=== PATIENT | female | born 1995 | race American Indian/Alaskan Native ===

== ENCOUNTER 2018-04-16 19:59 | Emergency (ER) | payer MEDICAID ==
[2018-04-16] MEDS ORDERED: ZOFRAN ONE (20:07)
[2018-04-16] MEDS ORDERED: TORADOL ONE (20:07)
[2018-04-16 20:21] VITALS: BP 142/88
[2018-04-16] MEDS ORDERED: ZOFRAN IM ONE (20:23)
[2018-04-16] MEDS ORDERED: TORADOL IM ONE (20:24)
[2018-04-16 20:49] LABS: Basophils % (Auto) 0.4 % (0.0-1.8); Eosinophils % (Auto) 0.5 % (0.0-4.3); Hematocrit 35.6 % (30.3-42.9); Hemoglobin 11.8 gm/dl (10.1-14.3); Lymphocytes # (Auto) 1.2 K/mm3 (1.2-5.4); Mean Corpuscular HGB Conc 33 % (30-34); Mean Corpuscular Hemoglobin 28 pg (28-32); Mean Corpuscular Volume 84 fl (79-97); Monocytes # (Auto) 0.4 K/mm3 (0.0-0.8); Monocytes % (Auto) 6.8 % (0.0-7.3); Platelet Count 148 K/mm3 (140-440); Red Blood Count 4.25 M/mm3 (3.65-5.03); Red Cell Distribution Width 13.2 % (13.2-15.2)
[2018-04-16 21:21] LABS: Alanine Aminotransferase 12 units/L (7-56); BUN/Creatinine Ratio 10; Blood Urea Nitrogen 7 mg/dL (7-17); Calcium 8.9 mg/dL (8.4-10.2); Hemolysis Index 3; Lipase 36 units/L (13-60)
--- NOTE | 2018-04-16 21:37 | Emergency Department Report ---
HPI - General Chief Complaint: Abdominal Pain Time Seen by Provider: 04/16/18 21:27 - HPI HPI: 22-year-old -[place] female presents to the emergency department with a complaint of a one to 2 day history of some left-sided flank pain. It started yesterday but worsened today. It is associated with some nausea and vomiting but that has improved since she got some Zofran through triage. She otherwise has not taken anything for her symptoms prior to presentation. She denies any fever, vaginal bleeding or discharge, dysuria. She does not have any past medical history. Her primary care physician is Dr. Catarino Ramírez. Recent travel or sick contacts at home. No obvious aggravating or alleviating factors. Currently her pain is 5 out of 10 in intensity. ED Past Medical Hx - Past Medical History Previous Medical History?: No - Surgical History Past Surgical History?: No - Social History Smoking Status: Never Smoker Substance Use Type: None - Medications Home Medications: Home Medications Medication Instructions Recorded Confirmed Last Taken Type Nitrofurantoin Monohyd/M-Cryst 100 mg PO BID #14 capsule 04/17/18 Unknown Rx [Macrobid 100 mg Capsule] ED Review of Systems ROS: Stated complaint: BACK PAIN/NAUSEA Other details as noted in HPI Comment: All other systems reviewed and negative Constitutional: denies: chills, fever Eyes: denies: eye pain, eye discharge, vision change ENT: denies: ear pain, throat pain Respiratory: denies: cough, shortness of breath, wheezing Cardiovascular: denies: chest pain, palpitations Gastrointestinal: abdominal pain (left flank), nausea, vomiting Genitourinary: denies: urgency, dysuria, discharge Musculoskeletal: denies: back pain, joint swelling, arthralgia Skin: denies: rash, lesions Neurological: denies: headache, weakness, paresthesias Physical Exam - Physical Exam Vital Signs: Vital Signs 04/16/18 20:17 Temperature 98.5 F Pulse Rate 95 H Respiratory 18 Rate Blood Pressure 142/88 O2 Sat by Pulse 99 Oximetry Physical Exam: GENERAL: The patient is well-developed well-nourished. HENT: Normocephalic. Atraumatic. Patient has moist mucous membranes. EYES: Extraocular motions are intact. Pupils equal reactive to light bilaterally. NECK: Supple. Trachea is midline. CHEST/LUNGS: Clear to auscultation. There is no respiratory distress noted. HEART/CARDIOVASCULAR: Regular. There is no tachycardia. There is no murmur. ABDOMEN: Abdomen is soft, nontender. Unable to reproduce abdominal or flank pain to palpation. No guarding. Patient has normal bowel sounds. There is no abdominal distention. SKIN: Skin is warm and dry. NEURO: The patient is awake, alert, and oriented. The patient is cooperative. The patient has no focal neurologic deficits. The patient has normal speech. MUSCULOSKELETAL: There is no tenderness or deformity. There is no limitation range of motion. There is no evidence of acute injury. BACK: No CVA tenderness to palpation. ED Course Vital Signs 04/16/18 20:17 Temperature 98.5 F Pulse Rate 95 H Respiratory 18 Rate Blood Pressure 142/88 O2 Sat by Pulse 99 Oximetry ED Medical Decision Making - Lab Data Result diagrams: 04/16/18 20:29 04/16/18 20:29 - Radiology Data Radiology results: report reviewed Transvaginal ultrasound shows an IUD present. Hypoechoic right ovarian lesion, consider complex cyst. Increased vascularity about the left adnexa consider pelvic congestion. Hyperechoic focus about the left adnexa nonspecific and may represent small calcification. Moderate free pelvic fluid. Consider recently ruptured ovarian cyst. Left renal ultrasound shows that the kidney is unremarkable. No hydronephrosis , mass or calculus. There is some mild free fluids. To the bladder. Bladder wall thickened at 8 mm. - Medical Decision Making Patient presents with some left flank and/or pelvic pain since yesterday as well as some nausea and vomiting. The nausea has resolved at this point. She had some improvement with the Toradol for her flank pain. The labs are mostly unremarkable except for the urinalysis which shows a mild urinary tract infection and some hematuria. A left renal ultrasound was done that does not show any abnormalities including no calculus or hydronephrosis. Transvaginal ultrasound was done that shows a hypoechoic right ovarian lesion to consider a complex cyst. There is some increased vascularity Out the left adnexa. There is a hyperechoic focus about the left adnexa that may represent a small calcification. There is moderately free pelvic fluid. This could all be showing a ruptured ovarian cyst. With the hematuria and the flank and/or pelvic pain, it is possible that the patient passed a kidney stone. It is also possible that her discomfort is secondary to ruptured ovarian cyst. She does not have any signs of torsion. Vital signs stable throughout her ED course included being afebrile. She appears safe for discharge home at this time. She has been encouraged to follow up with her primary care physician and has been given referrals for [facility] services. She was encouraged to return to the emergency Department with any worsening of her symptoms or any acute distress. - Differential Diagnosis nephrolithiasis, , ovarian torsion, ovarian cyst Critical Care Time: No Critical care attestation.: If time is entered above; I have spent that time in minutes in the direct care of this critically ill patient, excluding procedure time. ED Disposition Clinical Impression: Flank pain, Pelvic pain UTI (urinary tract infection) Qualifiers: Urinary tract infection type: acute cystitis Hematuria presence: with hematuria Qualified Code(s): N30.01 - Acute cystitis with hematuria Disposition: TO HOME OR SELFCARE Is pt being admited?: No Condition: Stable Instructions: Urinary Tract Infection in Women (ED), Flank Pain (ED) Additional Instructions: Please follow up with your primary care physician in the next few days. Take the antibiotics as prescribed. Return to the emergency Department with any worsening of her symptoms or any acute distress. Prescriptions: Nitrofurantoin Monohyd/M-Cryst [Macrobid 100 mg Capsule] 100 mg PO BID #14 capsule Referrals: CATARINO RAMÍREZ MD [Primary Care Provider] - JANAY Forms: Accompanied Note, Work/School Release Form(ED) Time of Disposition: 01:22
[2018-04-16 21:56] LABS: Bilirubin,Urine NEG (Negative); Blood,Urine LG (Negative); Color,Urine Yellow (Yellow); Mucus,Urine 2+ /HPF; Urobilinogen,Urine < 2.0 mg/dL (<2.0)
[2018-04-16 21:58] LABS: RBC,Urine > 182.0 /HPF (0.0-6.0)
[2018-04-16] MEDS ORDERED: MACROBID PO ONE (23:20)
--- NOTE | 2018-04-17 03:06 | Ultrasound Report ---
FINAL REPORT PROCEDURE: US RENAL LT TECHNIQUE: Real-time sonography in multiple planes of the kidneys, ureters and urinary bladder was performed with image documentation. CPT 89341 HISTORY: Left flank pain. COMPARISON: No prior studies are available for comparison. FINDINGS: Right kidney not imaged/seen. Left kidney measures 11.6 x 5.2 x 5 cm. Cortical thickness 1.4 cm. No hydronephrosis, mass, or calculus. Free fluid superior to the bladder. Bladder wall thickened at 8 mm. IMPRESSION: Right kidney not imaged/seen. Left kidney unremarkable. Bladder wall thickened, consider correlation clinically if there is concern for cystitis. Free fluid superior to the bladder.
--- NOTE | 2018-04-17 03:06 | Ultrasound Report ---
FINAL REPORT PROCEDURE: US TRANSVAGINAL TECHNIQUE: Real-time transabdominal sonography in multiple planes of the pelvis was performed. The pelvic structures, especially the ovaries were not optimally visualized. Transvaginal sonography was then performed to better evaluate the structures and/or abnormalities described below with image documentation. Limited Doppler evaluation of the ovaries/adnexa. CPT 42837 [place] 82589 HISTORY: Pelvic pain. COMPARISON: No prior studies are available for comparison. FINDINGS: UTERUS Size: 9.1 x 5.2 x 6.1. Cm. Endometrial thickness: 3.7 mm. IUD. Orientation: anteverted. Cervix: Normal. Fibroids/masses: None. RIGHT Ovary: 3.9 x 2.5 x 3.1 cm. Appearance: Normal flow. 2.3 cm hypoechoic lesion. LEFT Ovary: 3 x 1.2 x 2 cm. Appearance: Normal flow. There appears to be increased vascularity about the left adnexa. 6.2 x 4.2 x 8.4 mm hyperechoic focus about the left adnexa. Pelvic fluid: Moderate free pelvic fluid. Other: None. IMPRESSION: IUD. Hypoechoic right ovarian lesion, consider complex cyst. Consider correlation with beta HCG. Increased vascularity about the left adnexa, consider pelvic congestion. Hyperechoic focus about the left adnexa, nonspecific may represent small calcification. Moderate free pelvic fluid. Consider correlation clinically if there is concern for recently ruptured ovarian cysts. PROCEDURE: TECHNIQUE: HISTORY: COMPARISON: FINDINGS: IMPRESSION:
--- NOTE | 2018-04-17 03:07 | Ultrasound Report ---
FINAL REPORT PROCEDURE: US TRANSVAGINAL TECHNIQUE: Real-time transabdominal sonography in multiple planes of the pelvis was performed. The pelvic structures, especially the ovaries were not optimally visualized. Transvaginal sonography was then performed to better evaluate the structures and/or abnormalities described below with image documentation. Limited Doppler evaluation of the ovaries/adnexa. CPT 44904 and 76969 HISTORY: Pelvic pain. COMPARISON: No prior studies are available for comparison. FINDINGS: UTERUS Size: 9.1 x 5.2 x 6.1. Cm. Endometrial thickness: 3.7 mm. IUD. Orientation: anteverted. Cervix: Normal. Fibroids/masses: None. RIGHT Ovary: 3.9 x 2.5 x 3.1 cm. Appearance: Normal flow. 2.3 cm hypoechoic lesion. LEFT Ovary: 3 x 1.2 x 2 cm. Appearance: Normal flow. There appears to be increased vascularity about the left adnexa. 6.2 x 4.2 x 8.4 mm hyperechoic focus about the left adnexa. Pelvic fluid: Moderate free pelvic fluid. Other: None. IMPRESSION: IUD. Hypoechoic right ovarian lesion, consider complex cyst. Consider correlation with beta HCG. Increased vascularity about the left adnexa, consider pelvic congestion. Hyperechoic focus about the left adnexa, nonspecific may represent small calcification. Moderate free pelvic fluid. Consider correlation clinically if there is concern for recently ruptured ovarian cysts.
== END 2018-04-17 01:32 | disposition home or self-care (01) ==
LOC: ED 19:59
DX: N30.01 Acute cystitis with hematuria (principal); R10.2 Pelvic and perineal pain
CPT/HCPCS: 36415; 76775; 76830; 76856; 80053; 81001; 83690; 84703; 85025; 96372; 99284; J1885; J2405

== ENCOUNTER 2018-04-21 12:49 | Emergency (ER) | payer MEDICAID ==
[2018-04-21 13:07] VITALS: BP 132/71
== END 2018-04-21 14:45 | disposition left against medical advice (07) ==
LOC: ED 12:49
DX: R10.9 Unspecified abdominal pain (principal); Z53.21 Procedure and treatment not carried out due to patient leaving prior to being seen by health care provider

== ENCOUNTER 2018-05-07 06:17 | Emergency (ER) | payer MEDICAID ==
[2018-05-07 07:50] LABS: Basophils % (Auto) 0.5 % (0.0-1.8); Eosinophils # (Auto) 0.1 K/mm3 (0.0-0.4); Eosinophils % (Auto) 1.8 % (0.0-4.3); Hemoglobin 12.3 gm/dl (10.1-14.3); Lymphocytes # (Auto) 1.7 K/mm3 (1.2-5.4); Lymphocytes % (Auto) 38.6 % (13.4-35.0); Mean Corpuscular HGB Conc 33 % (30-34); Mean Corpuscular Hemoglobin 28 pg (28-32); Mean Corpuscular Volume 84 fl (79-97); Monocytes # (Auto) 0.4 K/mm3 (0.0-0.8); Monocytes % (Auto) 9.7 % (0.0-7.3); Platelet Count 142 K/mm3 (140-440); Red Blood Count 4.41 M/mm3 (3.65-5.03); Red Cell Distribution Width 13.2 % (13.2-15.2)
[2018-05-07 08:12] LABS: Alanine Aminotransferase 10 units/L (7-56); Albumin 4.1 g/dL (3.9-5); BUN/Creatinine Ratio 25; Blood Urea Nitrogen 15 mg/dL (7-17); Calcium 9.2 mg/dL (8.4-10.2); Hemolysis Index 2
[2018-05-07] MEDS ORDERED: TORADOL IM ONE (08:13)
[2018-05-07 08:17] LABS: Bacteria,Urine 2+ /HPF (Negative); Bilirubin,Urine NEG (Negative); Blood,Urine MOD (Negative); Color,Urine Yellow (Yellow); Mucus,Urine 1+ /HPF; Urobilinogen,Urine < 2.0 mg/dL (<2.0)
[2018-05-07 08:18] LABS: HCG Qualitative,Urine Negative (Negative)
--- NOTE | 2018-05-07 10:21 | Ultrasound Report ---
Renal ultrasound: Flank and left lower quadrant pain. The right renal length is 11.4 cm. There is no obvious renal mass or calculus and no hydronephrosis. The renal contour is grossly normal. The left renal length is 11.6 cm. In the superior pole there is a small circumscribed echodensity measuring 5 mm. In the mid kidney a similar density is noted measuring 8 mm. There is no hydronephrosis and no renal masses appreciated. Imaging of the urinary bladder demonstrates partial decompression but no other findings. Impressions: Questionable nonobstructing left renal calculi.
[2018-05-07 10:24] VITALS: BP 121/76
--- NOTE | 2018-05-07 10:49 | Ultrasound Report ---
Pelvic ultrasound: Pelvic pain. Endovaginal and transabdominal imaging demonstrates a retroverted uterus measuring roughly 5.1 x 7 x 8.9 cm. An IUD is present within the endometrium. Endometrial thickness is 8.5 mm. The myometrium is somewhat heterogeneous but there is no definable mass. The right ovary measures a maximum of 3.6 cm. It contains a 1.1 cm cyst. The left ovary has a maximum dimension of 3.6 cm and contains 3 cysts measuring 8 mm, 8 mm, and 14 mm respectively. A small amount of echolucent fluid is noted in the cul-de-sac and around the right adnexa. Impression: Bilateral ovarian follicles. Retroverted uterus.
--- NOTE | 2018-05-07 11:09 | Emergency Department Report ---
ED General Adult HPI - General Chief complaint: Abdominal Pain Stated complaint: FLANK PAIN Time Seen by Provider: 05/07/18 08:01 Source: patient Mode of arrival: Stretcher Limitations: No Limitations - History of Present Illness Initial comments: This is a 22-year-old female that presents to the emergency department for the third time in 1 month with a complaint of left flank pain. The pain was radiating to the left lower quadrant on the last 2 visits. The last visit it was associated with fluid and an ovarian cyst but no kidney stone. On this visit. No free fluid but there are tiny flecks of calcium seen in both kidneys with no hydronephrosis. Patient in addition went to her family physician who told her she had a kidney stone on the left. Patient states that occasionally she has nausea. She's had no recent vomiting. No fever or chills. -: Gradual Location: back, abdomen Severity scale (0 -10): 5 Quality: aching Consistency: intermittent Improves with: none Worsens with: none Associated Symptoms: denies other symptoms, nausea/vomiting Treatments Prior to Arrival: none - Related Data Previous Rx's Medication Instructions Recorded Last Taken Type Nitrofurantoin Monohyd/M-Cryst 100 mg PO BID #14 capsule 04/17/18 Unknown Rx [Macrobid 100 mg Capsule] Sulfamethoxazole/Trimethoprim 1 each PO BID #14 tablet 05/07/18 Unknown Rx [Bactrim DS TAB] traMADol [Ultram] 50 mg PO Q6HR PRN #14 tablet 05/07/18 Unknown Rx Allergies Allergy/AdvReac Type Severity Reaction Status Date / Time Penicillins Allergy Hives Verified 05/07/18 06:43 ED Review of Systems ROS: Stated complaint: FLANK PAIN Other details as noted in HPI Constitutional: denies: chills, fever Eyes: denies: eye pain, eye discharge, vision change ENT: denies: ear pain, throat pain Respiratory: denies: cough, shortness of breath, wheezing Cardiovascular: denies: chest pain, palpitations Endocrine: no symptoms reported Gastrointestinal: abdominal pain, nausea. denies: diarrhea Genitourinary: denies: urgency, dysuria, discharge Musculoskeletal: denies: back pain, joint swelling, arthralgia Skin: denies: rash, lesions Neurological: denies: headache, weakness, paresthesias Psychiatric: denies: anxiety, depression Hematological/Lymphatic: denies: easy bleeding, easy bruising ED Past Medical Hx - Past Medical History Previous Medical History?: No - Surgical History Past Surgical History?: No - Social History Smoking Status: Never Smoker - Medications Home Medications: Home Medications Medication Instructions Recorded Confirmed Last Taken Type Nitrofurantoin Monohyd/M-Cryst 100 mg PO BID #14 capsule 04/17/18 Unknown Rx [Macrobid 100 mg Capsule] Sulfamethoxazole/Trimethoprim 1 each PO BID #14 tablet 05/07/18 Unknown Rx [Bactrim DS TAB] traMADol [Ultram] 50 mg PO Q6HR PRN #14 tablet 05/07/18 Unknown Rx ED Physical Exam - General Limitations: No Limitations General appearance: alert, in no apparent distress - Head Head exam: Present: atraumatic, normocephalic - Eye Eye exam: Present: normal appearance, PERRL, EOMI. Absent: scleral icterus - ENT ENT exam: Present: mucous membranes moist - Neck Neck exam: Present: normal inspection - Respiratory Respiratory exam: Present: normal lung sounds bilaterally. Absent: respiratory distress - Cardiovascular Cardiovascular Exam: Present: regular rate, normal rhythm. Absent: systolic murmur, diastolic murmur, rubs, gallop - GI/Abdominal GI/Abdominal exam: Present: soft, normal bowel sounds. Absent: distended, tenderness, guarding, rebound, rigid - Extremities Exam Extremities exam: Present: normal inspection - Back Exam Back exam: Present: normal inspection. Absent: CVA tenderness (R), CVA tenderness (L), muscle spasm, paraspinal tenderness, vertebral tenderness - Neurological Exam Neurological exam: Present: alert, oriented X3, CN II-XII intact. Absent: motor sensory deficit - Psychiatric Psychiatric exam: Present: normal affect, normal mood - Skin Skin exam: Present: warm, dry, intact, normal color. Absent: rash ED Course Vital Signs 05/07/18 05/07/18 05/07/18 06:14 06:43 08:01 Temperature 98.6 F 98.6 F Pulse Rate 86 86 Respiratory 18 18 12 Rate Blood Pressure 113/75 113/75 Blood Pressure [Left] O2 Sat by Pulse 100 100 100 Oximetry 05/07/18 05/07/18 08:04 10:23 Temperature 98.9 F 98.5 F Pulse Rate 74 73 Respiratory 12 14 Rate Blood Pressure Blood Pressure 124/84 121/76 [Left] O2 Sat by Pulse 100 100 Oximetry - Reevaluation(s) Reevaluation #1: Patient without significant pain here. She is appropriate for outpatient follow -up. 05/07/18 11:12 ED Medical Decision Making - Lab Data Result diagrams: 05/07/18 06:58 05/07/18 06:58 Laboratory Results - last 24 hr 05/07/18 05/07/18 05/07/18 06:58 06:58 07:54 WBC 4.3 L RBC 4.41 Hgb 12.3 Hct 37.0 MCV 84 MCH 28 MCHC 33 RDW 13.2 Plt Count 142 Lymph % (Auto) 38.6 H [place] % (Auto) 9.7 H Eos % (Auto) 1.8 Baso % (Auto) 0.5 Lymph # 1.7 [place] # 0.4 Eos # 0.1 Baso # 0.0 Seg Neutrophils % 49.4 Seg Neutrophils # 2.1 Sodium 140 Potassium 3.6 Chloride 100.1 Carbon Dioxide 30 Anion Gap 14 BUN 15 Creatinine 0.6 L Estimated GFR > 60 BUN/Creatinine Ratio 25 Glucose 94 Calcium 9.2 Total Bilirubin 0.60 AST 15 ALT 10 Alkaline Phosphatase 57 Total Protein 6.9 Albumin 4.1 Albumin/Globulin Ratio 1.5 Urine Color Yellow Urine Turbidity Clear Urine pH 5.0 Ur Specific [place] 1.021 Urine Protein 30 mg/dl Urine Glucose (UA) Neg Urine Ketones Neg Urine Blood Mod Urine Nitrite Neg Urine Bilirubin Neg Urine Urobilinogen < 2.0 Ur Leukocyte Esterase Tr Urine WBC (Auto) 14.0 H Urine RBC (Auto) 83.0 U Epithel Cells (Auto) 6.0 Urine Bacteria (Auto) 2+ Urine Mucus 1+ Urine HCG, Qual Negative - Radiology Data Radiology results: report reviewed Critical care attestation.: If time is entered above; I have spent that time in minutes in the direct care of this critically ill patient, excluding procedure time. ED Disposition Clinical Impression: Flank pain UTI (urinary tract infection) Qualifiers: Urinary tract infection type: site unspecified Hematuria presence: with hematuria Qualified Code(s): N39.0 - Urinary tract infection, site not specified ; R31.9 - Hematuria, unspecified Disposition: DC-01 TO HOME OR SELFCARE Is pt being admited?: No Does the pt Need Aspirin: No Condition: Stable Instructions: Abdominal Pain (ED), Flank Pain (ED) Additional Instructions: Follow-up with your primary care physician. I'm also giving him the name of a dietetic aide and a urologist that you can follow up with. There is no additional emergency treatment that is necessary today. Return any acute change or problems. There is a possible urine infection. Follow-up on your urine culture results in 2 days to determine if the antibiotic I prescribed is appropriate to continue. Prescriptions: Sulfamethoxazole/Trimethoprim [Bactrim DS TAB] 1 each PO BID #14 tablet traMADol [Ultram] 50 mg PO Q6HR PRN #14 tablet PRN Reason: Pain Referrals: PRIMARY CAREMD [Primary Care Provider] - 3-5 Days HANY MURRAY MD [Staff Physician] - 3-5 Days [facility] [Provider Group] - 3-5 Days Time of Disposition: 11:21
== END 2018-05-07 11:41 | disposition home or self-care (01) ==
LOC: ED 06:17
DX: N39.0 Urinary tract infection, site not specified (principal); Z88.0 Allergy status to penicillin
CPT/HCPCS: 36415; 76770; 76830; 76856; 80053; 81001; 81025; 85025; 87086; 96372; 99284; J1885

== ENCOUNTER 2018-12-31 21:24 | Emergency (ER) | payer MEDICAID ==
[2018-12-31 22:36] VITALS: BP 125/88
[2018-12-31] MEDS ORDERED: NACL 0.9% 1000 ML 1,000 ML IV ONE (22:36)
[2018-12-31 22:57] LABS: Basophils % (Auto) 0.2 % (0.0-1.8); Eosinophils % (Auto) 0.4 % (0.0-4.3); Hematocrit 36.4 % (30.3-42.9); Hemoglobin 12.3 gm/dl (10.1-14.3); Lymphocytes # (Auto) 1.1 K/mm3 (1.2-5.4); Lymphocytes % (Auto) 28.8 % (13.4-35.0); Mean Corpuscular HGB Conc 34 % (30-34); Mean Corpuscular Volume 84 fl (79-97); Monocytes # (Auto) 0.3 K/mm3 (0.0-0.8); Monocytes % (Auto) 7.3 % (0.0-7.3); Platelet Count 167 K/mm3 (140-440); Red Blood Count 4.32 M/mm3 (3.65-5.03); Red Cell Distribution Width 13.3 % (13.2-15.2)
[2018-12-31 23:20] LABS: Alanine Aminotransferase 12 units/L (7-56); Albumin 4.3 g/dL (3.9-5); BUN/Creatinine Ratio 17; Blood Urea Nitrogen 12 mg/dL (7-17); Calcium 8.8 mg/dL (8.4-10.2); Hemolysis Index 13
[2019-01-01 01:56] LABS: Bacteria,Urine 4+ /HPF (Negative); Bilirubin,Urine NEG (Negative); Blood,Urine NEG (Negative); Color,Urine Yellow (Yellow); Mucus,Urine FEW /HPF; Protein,Urine <15 mg/dL mg/dL (Negative); Urobilinogen,Urine < 2.0 mg/dL (<2.0)
[2019-01-01] MEDS ORDERED: ZOFRAN IV ONE (02:08)
[2019-01-01] MEDS ORDERED: TORADOL IV ONE (02:08)
[2019-01-01] MEDS ORDERED: NACL 0.9% 1000 ML 1,000 ML IV ONE (02:08)
--- NOTE | 2019-01-01 03:12 | Emergency Department Report ---
ED Abdominal Pain HPI - General Chief Complaint: Abdominal Pain Stated Complaint: SEVERE ABD PAIN Time Seen by Provider: 01/01/19 02:07 Source: patient, family Mode of arrival: Ambulatory Limitations: No Limitations - History of Present Illness Initial Comments: There is a 3-year-old -[place] female with a history of renal stones and ovarian cyst who presents for left flank pain radiating to back pain is 7/10 irritating consistent patient denies hematuria years urinary frequency urgency patient denies vaginal discharge is no fever no chills there's no abdominal cramping symptoms are exacerbated by movement symptoms are relieved by nothing there is associated nausea no vomiting. MD Complaint: abdominal pain, flank pain Onset/Timin -: week(s) Location: LLQ Radiation: L flank Severity scale (0 -10): 8 Quality: cramping, aching Improves With: nothing Worsens With: movement Associated Symptoms: nausea - Related Data LMP (females 10-50): last week Previous Rx's Medication Instructions Recorded Last Taken Type Nitrofurantoin Monohyd/M-Cryst 100 mg PO BID #14 capsule 04/17/18 Unknown Rx [Macrobid 100 mg Capsule] Sulfamethoxazole/Trimethoprim 1 each PO BID #14 tablet 05/07/18 Unknown Rx [Bactrim DS TAB] traMADol [Ultram] 50 mg PO Q6HR PRN #14 tablet 05/07/18 Unknown Rx Ciprofloxacin HCl [Cipro] 500 mg PO BID 10 Days #20 tablet 01/01/19 Unknown Rx Tamsulosin HCl [Flomax] 0.4 mg PO DAILY #30 cap.er.24h 01/01/19 Unknown Rx Tramadol HCl [Ultram] 50 mg PO Q6H PRN #12 tablet 01/01/19 Unknown Rx Allergies Allergy/AdvReac Type Severity Reaction Status Date / Time Penicillins Allergy Hives Verified 05/07/18 06:43 ED Review of Systems ROS: Stated complaint: SEVERE ABD PAIN Other details as noted in HPI Constitutional: denies: chills, fever Eyes: denies: eye pain, eye discharge, vision change ENT: denies: ear pain, throat pain Respiratory: denies: cough, shortness of breath, wheezing Cardiovascular: denies: chest pain, palpitations Endocrine: no symptoms reported Gastrointestinal: abdominal pain, nausea. denies: vomiting, diarrhea, constipation, hematemesis, melena, hematochezia Genitourinary: frequency. denies: urgency, dysuria, hematuria, discharge Musculoskeletal: back pain (left flank pain ). denies: joint swelling, arthralgia Skin: denies: rash, lesions Neurological: denies: headache, weakness, paresthesias Psychiatric: denies: anxiety, depression Hematological/Lymphatic: as per HPI ED Past Medical Hx - Past Medical History Hx Kidney Stones: Yes Additional medical history: Thyroid Disease - Surgical History Past Surgical History?: No - Social History Smoking Status: Never Smoker Substance Use Type: None - Medications Home Medications: Home Medications Medication Instructions Recorded Confirmed Last Taken Type Nitrofurantoin Monohyd/M-Cryst 100 mg PO BID #14 capsule 04/17/18 Unknown Rx [Macrobid 100 mg Capsule] Sulfamethoxazole/Trimethoprim 1 each PO BID #14 tablet 05/07/18 Unknown Rx [Bactrim DS TAB] traMADol [Ultram] 50 mg PO Q6HR PRN #14 tablet 05/07/18 Unknown Rx Ciprofloxacin HCl [Cipro] 500 mg PO BID 10 Days #20 tablet 01/01/19 Unknown Rx Tamsulosin HCl [Flomax] 0.4 mg PO DAILY #30 cap.er.24h 01/01/19 Unknown Rx Tramadol HCl [Ultram] 50 mg PO Q6H PRN #12 tablet 01/01/19 Unknown Rx ED Physical Exam - General Limitations: No Limitations General appearance: alert, in no apparent distress - Head Head exam: Present: atraumatic, normocephalic - Eye Eye exam: Present: normal appearance, PERRL, EOMI Pupils: Present: normal accommodation - ENT ENT exam: Present: mucous membranes moist - Neck Neck exam: Present: normal inspection, full ROM - Respiratory Respiratory exam: Present: normal lung sounds bilaterally. Absent: respiratory distress - Cardiovascular Cardiovascular Exam: Present: regular rate, normal rhythm. Absent: systolic murmur, diastolic murmur, rubs, gallop - GI/Abdominal GI/Abdominal exam: Present: soft, tenderness (LLQ ), normal bowel sounds. Absent: distended, guarding, rebound, rigid, bruit, hernia - Expanded GI/Abdominal Exam Expanded GI/Abdominal exam: Absent: psoas sign, obturator sign, heel tap sign, Lowry's sign, Rovsing's sign, tenderness at Mcburney's Point, ascites - Rectal Rectal exam: Present: deferred - External exam: Present: other (exam deferred per patient ) - Extremities Exam Extremities exam: Present: normal inspection, full ROM - Back Exam Back exam: Present: normal inspection, full ROM, tenderness, CVA tenderness (R). Absent: CVA tenderness (L), muscle spasm, paraspinal tenderness, vertebral tenderness, rash noted - Neurological Exam Neurological exam: Present: alert, oriented X3, CN II-XII intact, normal gait, reflexes normal - Psychiatric Psychiatric exam: Present: normal affect, normal mood - Skin Skin exam: Present: warm, dry, intact, normal color. Absent: rash ED Course Vital Signs 12/31/18 22:32 Temperature 98.6 F Pulse Rate 91 H Respiratory 18 Rate Blood Pressure 125/88 O2 Sat by Pulse 100 Oximetry ED Medical Decision Making - Lab Data Result diagrams: 12/31/18 22:40 12/31/18 22:40 Labs 12/31/18 12/31/18 12/31/18 22:40 22:40 22:40 WBC 3.8 L RBC 4.32 Hgb 12.3 Hct 36.4 MCV 84 MCH 29 MCHC 34 RDW 13.3 Plt Count 167 Lymph % (Auto) 28.8 Major % (Auto) 7.3 Eos % (Auto) 0.4 Baso % (Auto) 0.2 Lymph # 1.1 L Major # 0.3 Eos # 0.0 Baso # 0.0 Seg Neutrophils % 63.3 Seg Neutrophils # 2.4 Sodium 135 L Potassium 3.9 Chloride 102.8 Carbon Dioxide 23 Anion Gap 13 BUN 12 Creatinine 0.7 Estimated GFR > 60 BUN/Creatinine Ratio 17 Glucose 111 H Calcium 8.8 Total Bilirubin 0.30 AST 19 ALT 12 Alkaline Phosphatase 51 Total Protein 6.9 Albumin 4.3 Albumin/Globulin Ratio 1.7 Lipase 45 HCG, Qual Negative Urine Color Urine Turbidity Urine pH Ur Specific [place] Urine Protein Urine Glucose (UA) Urine Ketones Urine Blood Urine Nitrite Urine Bilirubin Urine Urobilinogen Ur Leukocyte Esterase Urine WBC (Auto) Urine RBC (Auto) U Epithel Cells (Auto) Urine Bacteria (Auto) Urine Mucus 01/01/19 00:52 WBC RBC Hgb Hct MCV MCH MCHC RDW Plt Count Lymph % (Auto) Major % (Auto) Eos % (Auto) Baso % (Auto) Lymph # Major # Eos # Baso # Seg Neutrophils % Seg Neutrophils # Sodium Potassium Chloride Carbon Dioxide Anion Gap BUN Creatinine Estimated GFR BUN/Creatinine Ratio Glucose Calcium Total Bilirubin AST ALT Alkaline Phosphatase Total Protein Albumin Albumin/Globulin Ratio Lipase HCG, Qual Urine Color Yellow Urine Turbidity Clear Urine pH 8.0 H Ur Specific [place] 1.009 Urine Protein <15 mg/dl Urine Glucose (UA) Neg Urine Ketones Neg Urine Blood Neg Urine Nitrite Neg Urine Bilirubin Neg Urine Urobilinogen < 2.0 Ur Leukocyte Esterase Tr Urine WBC (Auto) 2.0 Urine RBC (Auto) 2.0 U Epithel Cells (Auto) 4.0 Urine Bacteria (Auto) 4+ Urine Mucus Few - Radiology Data Radiology results: report reviewed, image reviewed Referring Physician: MICHELE WHITAKER Patient Name: PERLA WALKER Date of : 1995 Sex: Female Report Date: 2019-01-01 Report Status: [place] [address] Cat Scan Report Signed Patient: PERLA WALKER MR#: [id number] : 1995 Acct:[id number] Age/Sex: 23 / F ADM Date: 12/31/18 Loc: ED Attending Dr: Ordering Physician: MICHELE WHITAKER NP Date of Service: 01/01/19 Procedure(s): CT abdomen pelvis wo con Accession Number(s): [id number] cc: MICHELE WHITAKER NP FINAL REPORT PROCEDURE: CT ABDOMEN PELVIS WO CON TECHNIQUE: Computerized axial tomography of the abdomen and pelvis was performed without intravenous contrast. This study is performed without intravascular contrast material and its sensitivity for abdominal and pelvic pathology, including neoplasms, inflammation, abscess, free fluid, thrombosis, arterial dissection and infarction, is reduced compared with a contrast enhanced study. HISTORY: flank pain COMPARISON: No prior studies are available for comparison. FINDINGS: Visualized lower thorax: No significant abnormality. Liver: Normal size and attenuation. Spleen: Normal size and attenuation. Gallbladder and biliary system: Normal. Pancreas: Normal. Adrenals: Normal. Kidneys: There are tiny stones in the left kidney. There are no ureteral stones. There is no hydronephrosis per. GI tract: There is no bowel obstruction, colitis or enteritis. The appendix is normal.. Lymph nodes and mesentery: Normal. Vasculature: Normal. Bladder: Normal. Reproductive organs: The uterus is retroverted. There is an IUD in proper position.. Peritoneum: There is minimal free pelvic fluid which is nonspecific. There is no free air, abscess or adenopathy.. Musculoskeletal structures: No significant abnormality. Other: None. IMPRESSION: There are tiny stones in the left kidney. There are no ureteral stones. There is no hydronephrosis per. There is no bowel obstruction, colitis or enteritis. The appendix is normal.. The uterus is retroverted. There is an IUD in proper position.. There is minimal free pelvic fluid which is nonspecific. There is no free air, abscess or adenopathy.. . Transcribed By: CO Dictated By: JEFF MILLER MD Electronically Authenticated By: JEFF MILLER MD Signed Date/Time: 01/01/19352 DD/ 1 TD/TT: 01/01/19351 - Medical Decision Making CT : small kidney stone no obstruction no pyelonephritis no hydronephrosis , plan, Ultram, flomax, follow up with urology , follow up with pcp in 2-3 days, return to ed if symptoms worsen, pt verbalized agreement and understanding of discharge plan. Critical care attestation.: If time is entered above; I have spent that time in minutes in the direct care of this critically ill patient, excluding procedure time. ED Disposition Clinical Impression: Kidney stones Disposition: -01 TO HOME OR SELFCARE Is pt being admited?: No Does the pt Need Aspirin: No Condition: Stable Instructions: Abdominal Pain (ED), Kidney Stones (ED) Prescriptions: Ciprofloxacin HCl [Cipro] 500 mg PO BID 10 Days #20 tablet Tamsulosin HCl [Flomax] 0.4 mg PO DAILY #30 cap.er.24h Tramadol HCl [Ultram] 50 mg PO Q6H PRN #12 tablet PRN Reason: pain Referrals: LEYDI DAI MD [Staff Physician] - 3-5 Days Forms: Work/School Release Form(ED) Time of Disposition: 04:43
--- NOTE | 2019-01-01 03:53 | Cat Scan Report ---
FINAL REPORT PROCEDURE: CT ABDOMEN PELVIS WO CON TECHNIQUE: Computerized axial tomography of the abdomen and pelvis was performed without intravenous contrast. This study is performed without intravascular contrast material and its sensitivity for ab dominal and pelvic pathology, including neoplasms, inflammation, abscess, free fluid, thrombosis, art erial dissection and infarction, is reduced compared with a contrast enhanced study. HISTORY: flank pain COMPARISON: No prior studies are available for comparison. FINDINGS: Visualized lower thorax: No significant abnormality. Liver: Normal size and attenuation. Spleen: Normal size and attenuation. Gallbladder and biliary system: Normal. Pancreas: Normal. Adrenals: Normal. Kidneys: There are tiny stones in the left kidney. There are no ureteral stones. There is no hydronep hrosis per. GI tract: There is no bowel obstruction, colitis or enteritis. The appendix is normal.. Lymph nodes and mesentery: Normal. Vasculature: Normal. Bladder: Normal. Reproductive organs: The uterus is retroverted. There is an IUD in proper position.. Peritoneum: There is minimal free pelvic fluid which is nonspecific. There is no free air, abscess or adenopathy.. Musculoskeletal structures: No significant abnormality. Other: None. IMPRESSION: There are tiny stones in the left kidney. There are no ureteral stones. There is no hydronephrosis pe r. There is no bowel obstruction, colitis or enteritis. The appendix is normal.. The uterus is retroverted. There is an IUD in proper position.. There is minimal free pelvic fluid which is nonspecific. There is no free air, abscess or adenopathy.. .
[2019-01-01] MEDS ORDERED: NORCO 5/325 PO ONE (04:47)
== END 2019-01-01 05:38 | disposition home or self-care (01) ==
LOC: ED 21:24
DX: N20.0 Calculus of kidney (principal); Z88.0 Allergy status to penicillin
CPT/HCPCS: 36415; 74176; 80053; 81001; 83690; 84703; 85025; 96374; 96375; 99284; J1885; J2405; J7030